=== PATIENT | female | born 1940 | race African-American/Black ===

== ENCOUNTER 2019-04-27 14:05 | Emergency (ER) | payer OTHER ==
--- NOTE | 2019-04-27 14:16 | PDOC ---
Rapid Medical Evaluation Time Seen by Provider: 04/27/19 14:14 Medical Evaluation: Allergies Allergy/AdvReac Type Severity Reaction Status Date / Time No Known Allergies Allergy Verified 03/14/15 18:14 04/27/19 14:16 CC: right lower back pain with sciatica PE: No focal findings Orders: tylenol Patient will proceed to ED for further evaluation. Discharge Disposition - Diagnosis Back pain - Referrals - Patient Instructions - Post Discharge Activity
[2019-04-27] MEDS ORDERED: ACETAMINOPHEN 500 MG TABLET (FP) PO ONE (14:17)
[2019-04-27 14:19] VITALS: BP 143/83; PULSE 62; TEMP 98.5; BMI 37.5
[2019-04-27] MEDS ORDERED: ACETAMINOPHEN 500 MG TABLET (FP) ONE (15:19)
[2019-04-27] MEDS ORDERED: traMADol HCL 50 MG TABLET PO ONE (15:19)
--- NOTE | 2019-04-27 15:20 | PDOC ---
History of Present Illness - General Chief Complaint: Back Pain Stated Complaint: RT. HIP PAIN Time Seen by Provider: 04/27/19 14:14 History Source: Patient, Family Exam Limitations: No Limitations - History of Present Illness Initial Comments: 04/27/19 16:17 Chief complaint: Right hip and ankle pain 78-year-old female with history of hypertension, elevated cholesterol, left breast cancer that has been fully treated and in remission who states that for the past 2 days she has been having increasing right hip and right ankle pain. Patient did have a knee replacement in 2004. Patient usually walks well with her walker but is having a little more difficulty the last 2 days. She saw her regular doctor who prescribed her meloxicam but patient feels it is not helping her and she is been crying in pain. Patient has been able to use the walker but not as well as she usually does. Patient has no incontinence, numbness. Patient does have prior back issues. Patient is ambulatory with a walker. GENERAL/CONSTITUTIONAL: No fever, weakness. dizziness HEAD, EYES, EARS, NOSE AND THROAT: No change in vision. No ear pain or discharge. No sore throat. CARDIOVASCULAR: No chest pain RESPIRATORY: No shortness of breath or cough GASTROINTESTINAL: No pain, nausea, vomiting, diarrhea or constipation GENITOURINARY: No dysuria MUSCULOSKELETAL: No neck or back pain SKIN: No rash NEUROLOGIC: No headache, vertigo, loss of consciousness, or loss of sensation. GENERAL: The patient is awake, alert, and fully oriented, in no acute distress. HEAD: Normal with no signs of trauma. EYES: Pupils equal, round and reactive to light, sclera anicteric, conjunctiva clear. ENT: pharynx: no erythema, no exudate, uvula midline NECK: supple CHEST: clear, nontender, rr ABD: soft, nontender BACK: no tenderness or signs of injury, + scoliosis EXTREMITIES: Right hip tenderness, no deformity, knee with chronic swelling, no signs of acute issue, ankle with mild tenderness, no deformity, no calf swelling , erythema or tenderness. Normal range of motion, no edema. NEUROLOGICAL: Normal speech, cranial nerves II through XII grossly intact, no gross focal abnormalities. SKIN: Warm, Dry Past History - Past Medical History Allergies/Adverse Reactions: Allergies Allergy/AdvReac Type Severity Reaction Status Date / Time No Known Allergies Allergy Verified 04/27/19 14:16 Home Medications: Ambulatory Orders Alendronate Na [Fosamax (Weekly)] 70 mg PO WEEKLY 11/23/13 Amlodipine Besylate [Norvasc -] 10 mg PO DAILY 11/23/13 Aspirin [Leonard Chewable Aspirin] 81 mg PO DAILY 11/23/13 Cholecalciferol (Vitamin D3) [Vitamin D-3] 2,000 units PO DAILY 11/23/13 Clonidine HCl [Catapres] 0.3 mg PO DAILY 11/23/13 Losartan Potassium [Cozaar] 100 mg PO DAILY 11/23/13 Simvastatin [Zocor -] 20 mg PO DAILY 11/23/13 Sulfamethoxazole/Trimethoprim [Bactrim *Ds*] 1 tab PO BID #14 tablet 03/14/15 Hydrocodone/Acetaminophen [Hydrocodone-Acetamin 5-325 mg] 1 each PO QID PRN #20 tablet MDD 4 04/27/19 Anemia: No Asthma: No Cancer: Yes (BREAST LEFT) Cardiac Disorders: Yes CVA: No COPD: No CHF: No Dementia: No Diabetes: Yes GI Disorders: Yes Disorders: Yes (FREQUENCY) HTN: Yes Hypercholesterolemia: Yes Liver Disease: No Seizures: No Thyroid Disease: Yes - Surgical History Abdominal Surgery: No Appendectomy: No Cardiac Surgery: No Cholecystectomy: No Lung Surgery: No Neurologic Surgery: No Orthopedic Surgery: Yes (BILATERAL KNEES) - Immunization History Immunization Up to Date: Yes - Psycho Social/Smoking Cessation Hx Smoking History: Never smoked Have you smoked in the past 12 months: No Hx Alcohol Use: No Drug/Substance Use Hx: No Substance Use Type: None Hx Substance Use Treatment: No *Physical Exam - Vital Signs Last Vital Signs Temp Pulse Resp BP Pulse Ox 98.5 F 62 17 143/83 99 04/27/19 14:16 04/27/19 14:16 04/27/19 14:16 04/27/19 14:16 04/27/19 14:16 Medical Decision Making - Medical Decision Making 04/27/19 16:21 78-year-old female with hypertension, elevated cholesterol, fully treated left breast cancer without any acute issue who is been having difficulty with left hip pain and ankle pain for the last couple of days which was evaluated by her primary care doctor, she was started on meloxicam and has an appointment with the orthopedist on Wednesday. Patient states she is in too much pain. Patient is with her daughter who states that she sometimes crying from the pain. Exam shows no acute concerning issues other than pain in the hip and ankle. Patient is able to ambulate with her walker although daughter states not as well as she usually does. There is no signs of infection, no calf swelling or tenderness. Patient has obvious scoliosis to the back. There is no neurological involvement. Patient will get x-rays of the hip and ankle which she would like to have. We will add tramadol to the meloxicam now and see if that helps her while she is in the ER. X-rays show no acute issue, patient has gotten some relief from the tramadol is awake alert and ambulatory. She would like something a little stronger and she lives with her son and daughter agrees. Will prescribe her hydrocodone. She knows not to take any other Tylenol in addition to what is in the hydrocodone. She will continue the meloxicam and follow-up with Dr. Arias on Wednesday and return sooner if she has having any more complicating issues. Discussed issues, findings, results, applicable medications and treatments and follow-up. All these were understood and all questions were answered Discharge - Discharge Information Problems reviewed: Yes Clinical Impression/Diagnosis: Hip pain, right Ankle pain, right Qualifiers: Chronicity: acute Qualified Code(s): M25.571 - Pain in right ankle and joints of right foot Condition: Stable Disposition: HOME - Admission No - Additional Discharge Information Prescriptions: Hydrocodone/Acetaminophen [Hydrocodone-Acetamin 5-325 mg] 1 each PO QID PRN #20 tablet MDD 4 PRN Reason: Pain Prescription Drug Monitoring Program (I-STOP) results: I-STOP reviewed and no issues identified - Follow up/Referral Referrals: Chandrakant Hernandez MD [Primary Care Provider] - Keith Douglass MD [Staff Physician] - - Patient Discharge Instructions Additional Instructions: You can continue taking the meloxicam that your doctor gave you. Do not take any Tylenol, I am prescribing you a medication that has Tylenol in it and taking too much Tylenol can harm your liver You can take the hydrocodone tablet every 6 hours. Follow-up with Dr. Douglass on Wednesday as scheduled Return to the ER if you become much sicker or pain is unbearable - Post Discharge Activity
[2019-04-27] MEDS ORDERED: traMADol HCL 50 MG TABLET ONE (15:21)
== END 2019-04-27 16:35 | disposition home or self-care (01) ==
LOC: JERFT 14:05
DX: M25.551 Pain in right hip (principal); M25.571 Pain in right ankle and joints of right foot; M41.9 Scoliosis, unspecified; I10 Essential (primary) hypertension; E78.00 Pure hypercholesterolemia, unspecified; E11.9 Type 2 diabetes mellitus without complications; R35.0 Frequency of micturition; Z85.3 Personal history of malignant neoplasm of breast; Z96.659 Presence of unspecified artificial knee joint; Z99.89 Dependence on other enabling machines and devices
CPT/HCPCS: 73502-TC-RT-FY; 73610-TC-RT-FY; 73630-TC-RT-FY; 99281-25

== ENCOUNTER 2021-01-24 08:40 | Inpatient (IN) | payer OTHER ==
[2021-01-24 08:48] VITALS: BMI 36.8
[2021-01-24] MEDS ORDERED: ACETAMINOPHEN 325 MG TABLET (FP) PO ONE (09:10)
[2021-01-24] MEDS ORDERED: SODIUM CHLORIDE 2,926 ML IV ONE (09:19)
[2021-01-24] MEDS ORDERED: ACETAMINOPHEN 1000 MG/100 ML VIAL (NON FORMULARY) IVPB ONE (09:20)
[2021-01-24] MEDS ORDERED: ACETAMINOPHEN INJECTION 100 ML IVPB ONE (09:31)
[2021-01-24] MEDS ORDERED: LACTATED RINGERS SOLUTION 1000 ML INFUS.BAG IV ONE (09:47)
[2021-01-24 10:11] LABS: EPI CELLS 19 /uL (0-25.1); HYALINE CASTS 1 /uL (0-3.1); PH,URINE 7.5 (5.0-8.0); URINE APPEARANCE CLEAR; URINE BACTERIA 117 /uL (0-1359); URINE BILIRUBIN NEGATIVE (NEGATIVE); URINE COLOR YELLOW; URINE GLUCOSE (UA) NEGATIVE (NEGATIVE); URINE KETONE 3+ (NEGATIVE); URINE LEUK ESTERASE TRACE (NEGATIVE); URINE NITRITE NEGATIVE (NEGATIVE); URINE PROTEIN 1+ (NEGATIVE); URINE RBC 22 /uL (0-23.9); URINE UROBILINOGEN 0.2 mg/dL (0.2-1.0); URINE WBC 18 /uL (0-25.8)
[2021-01-24] MEDS ORDERED: SODIUM CHLORIDE 0.9% 500 ML INFUS.BAG IV ONE (10:14)
[2021-01-24 10:34] LABS: BASO % 0.4 % (0-2.0); HEMOGLOBIN 13.3 GM/dL (10.7-15.3); MCH 29.3 pg (25.7-33.7); MCHC 34.2 g/dl (32.0-36.0); MEAN CELL VOLUME 85.5 fl (80-96); MEAN PLT VOLUME 9.4 fl (7.5-11.1); MONO % 10.1 % (3.8-10.2); NEUT % 77.5 % (42.8-82.8); PLATELET COUNT 222 10^3/uL (134-434); RBC 4.55 M/mm3 (3.60-5.2); RDW 14.1 % (11.6-15.6); WHITE BLOOD COUNT 9.9 K/mm3 (4.0-10.0)
[2021-01-24 10:51] LABS: CHLORIDE 101 mmol/L (98-107); SODIUM 137 mmol/L (136-145)
[2021-01-24 10:53] LABS: ANION GAP 9 MMOL/L (8-16); BLOOD UREA NITROGEN 9.8 mg/dL (7-18); CALCIUM 9.2 mg/dL (8.5-10.1); CO2 27 mmol/L (21-32); GLUCOSE,RANDOM 124 mg/dL (74-106)
[2021-01-24 10:54] LABS: ALBUMIN 3.4 g/dl (3.4-5.0)
[2021-01-24 10:56] LABS: CREATININE 0.6 mg/dL (0.55-1.3); SGOT/AST 21 U/L (15-37); SGPT/ALT 17 U/L (13-61)
[2021-01-24 10:59] LABS: ALK PHOS 81 U/L (45-117); BILIRUBIN,TOTAL 0.8 mg/dL (0.2-1)
[2021-01-24 11:32] LABS: INR 1.07 (0.83-1.09); PROTHROMBIN TIME (PATIENT) 12.9 SEC (9.7-13.0)
[2021-01-24 11:35] LABS: ACTIVATED PTT 27.3 SECONDS (25.2-36.5)
[2021-01-24] MEDS ORDERED: CEFTRIAXONE 1,000 MG in DEXTROSE 5%-WATER - 50 ML IVPB ONE (12:40)
[2021-01-24] MEDS ORDERED: AZITHROMYCIN IVPB 500 MG in DEXTROSE 5%-WATER - 250 ML IVPB ONE (12:40)
[2021-01-24] MEDS ORDERED: CEFTRIAXONE 1 GM/50 ML BAG ONE (12:43)
[2021-01-24] MEDS ORDERED: AZITHROMYCIN IVPB 500 MG/250 ML BAG IVPB ONE (12:43)
[2021-01-24] MEDS ORDERED: POTASSIUM CHLORIDE TABS 20 MEQ TABLET.ER (FP) PO ONE ×3 (13:02→17:00)
[2021-01-24] MEDS ORDERED: POTASSIUM CHLORIDE ORAL LIQUID 20 MEQ/15 ML PO ONE (13:46)
[2021-01-24] MEDS ORDERED: POTASSIUM CHLORIDE ORAL LIQUID 20 MEQ/15 ML ONE (13:47)
[2021-01-24] MEDS ORDERED: oxyCODONE HCL 5 MG TABLET ONE (13:56)
[2021-01-24] MEDS: oxyCODONE HCL 5 MG TABLET PO ONE ×2 (14:02→14:26)
[2021-01-24] MEDS ORDERED: DOCUSATE SODIUM 100 MG CAPSULE (FP) PO PRN (14:42)
[2021-01-24] MEDS ORDERED: ONDANSETRON 4 MG/2 ML VIAL IVPUSH PRN (14:45)
[2021-01-24] MEDS ORDERED: AZITHROMYCIN IVPB 250 MG in DEXTROSE 5%-WATER - 250 ML IVPB ONE (15:06)
[2021-01-24] MEDS ORDERED: METOCLOPRAMIDE HCL INJECTION 10 MG/2 ML VIAL IVPUSH PRN (15:09)
[2021-01-24] MEDS ORDERED: HYDROCHLOROTHIAZIDE 12.5 MG CAPSULE (FP) PO SCH (15:15)
[2021-01-24] MEDS ORDERED: amLODIPine BESYLATE 5 MG TABLET (FP) ONE (16:02)
[2021-01-24] MEDS ORDERED: HYDROCHLOROTHIAZIDE 25 MG TABLET (FP) ONE (16:02)
[2021-01-24] MEDS ORDERED: ASPIRIN 81 MG CHEWABLE TABLETS ONE (16:02)
[2021-01-24] MEDS ORDERED: LOSARTAN POTASSIUM 50 MG TABLET ONE (16:03)
[2021-01-24] MEDS ORDERED: PARoxetine HCL 10 MG TABLET ONE (16:03)
[2021-01-24] MEDS: LOSARTAN POTASSIUM 50 MG TABLET PO SCH (16:21)
[2021-01-24] MEDS: ASPIRIN 81 MG CHEWABLE TABLETS PO SCH (16:21)
[2021-01-24] MEDS: amLODIPine BESYLATE 10 MG TABLET (FP) PO SCH (16:22)
[2021-01-24] MEDS: PARoxetine HCL 10 MG TABLET PO SCH (16:22)
[2021-01-24] MEDS ORDERED: ACETAMINOPHEN 325 MG TABLET (FP) ONE (17:10)
[2021-01-24] MEDS: SOLIFENACIN SUCCINATE 5 MG TAB PO SCH (17:42)
[2021-01-24] MEDS ORDERED: LIDOCAINE 5% TOPICAL PATCH ONE (17:54)
[2021-01-24] MEDS: LIDOCAINE 5% TOPICAL PATCH TP SCH (18:00)
[2021-01-24] MEDS: ACETAMINOPHEN 325 MG TABLET (FP) PO PRN (18:00)
[2021-01-24] MEDS ORDERED: ATORVASTATIN CA 10 MG TABLET (FP) ONE (21:57)
[2021-01-24] MEDS: ATORVASTATIN CA 10 MG TABLET (FP) PO SCH (22:00)
[2021-01-24] MEDS: LIDOCAINE PATCH REMOVAL MC SCH (22:08)
[2021-01-25] MEDS ORDERED: traZODone HCL 50 MG TABLET (FP) PO ONE (01:20)
[2021-01-25] MEDS ORDERED: PIPERACILLIN/TAZOB 3.375 GM 3.375 GM in DEXTROSE 5%-WATER - 50 ML IVPB SCH (02:00)
[2021-01-25] MEDS: ACETAMINOPHEN 325 MG TABLET (FP) PO PRN ×2 (03:23→17:40)
[2021-01-25] MEDS ORDERED: DEXTROSE 5%-WATER - 50 ML IVPB ONE (08:48)
[2021-01-25] MEDS ORDERED: cefTRIAXone SODIUM 1 GM VIAL ONE (08:48)
[2021-01-25] MEDS ORDERED: PT OWN MED DRAWER 7, Y5N ONE ×3 (09:20→11:03)
[2021-01-25 09:25] LABS: BLOOD UREA NITROGEN 7.9 mg/dL (7-18); CALCIUM 8.3 mg/dL (8.5-10.1); MAGNESIUM 1.7 mg/dL (1.8-2.4)
[2021-01-25 09:28] LABS: CREATININE 0.5 mg/dL (0.55-1.3)
[2021-01-25 09:29] LABS: PHOSPHOROUS 2.7 mg/dL (2.5-4.9)
[2021-01-25 09:30] LABS: BILIRUBIN,TOTAL 0.5 mg/dL (0.2-1); TOT PROT 6.5 g/dl (6.4-8.2)
[2021-01-25 09:36] LABS: ALBUMIN 2.7 g/dl (3.4-5.0)
[2021-01-25 09:45] LABS: HEMATOCRIT 34.8 % (32.4-45.2); MCH 29.1 pg (25.7-33.7); MCHC 34.5 g/dl (32.0-36.0); MEAN CELL VOLUME 84.3 fl (80-96); MEAN PLT VOLUME 9.4 fl (7.5-11.1); PLATELET COUNT 177 10^3/uL (134-434); RBC 4.12 M/mm3 (3.60-5.2); RDW 14.2 % (11.6-15.6); WHITE BLOOD COUNT 8.7 K/mm3 (4.0-10.0)
[2021-01-25] MEDS ORDERED: POTASSIUM CHLORIDE TABS 20 MEQ TABLET.ER (FP) PO ONE (09:47)
[2021-01-25] MEDS: LIDOCAINE 5% TOPICAL PATCH TP SCH (09:52)
[2021-01-25] MEDS: LOSARTAN POTASSIUM 50 MG TABLET PO SCH (09:57)
[2021-01-25] MEDS: amLODIPine BESYLATE 10 MG TABLET (FP) PO SCH (09:57)
[2021-01-25] MEDS: PARoxetine HCL 10 MG TABLET PO SCH (09:57)
[2021-01-25] MEDS: ENOXAPARIN NA (PORCINE) 40 MG/0.4 ML DISP.SYRIN SQ SCH (09:57)
[2021-01-25] MEDS: CEFTRIAXONE 1 GM in DEXTROSE 5%-WATER - 50 ML IVPB SCH (09:57)
[2021-01-25] MEDS: ASPIRIN 81 MG CHEWABLE TABLETS PO SCH (09:57)
[2021-01-25] MEDS ORDERED: CEFTRIAXONE 1 GM in DEXTROSE 5%-WATER - 50 ML IVPB SCH (10:00)
[2021-01-25] MEDS ORDERED: KCL 10 MEQ IVPB 10 MEQ/100 ML INFUS.BAG IVPB SCH (10:00)
[2021-01-25] MEDS ORDERED: AZITHROMYCIN IVPB 250 MG in DEXTROSE 5%-WATER - 250 ML IVPB SCH (10:00)
[2021-01-25] MEDS: AZITHROMYCIN IVPB 250 MG in DEXTROSE 5%-WATER - 250 ML IVPB SCH (10:46)
[2021-01-25] MEDS: FUROSEMIDE 20 MG TABLET (FP) PO SCH (10:52)
[2021-01-25] MEDS: SOLIFENACIN SUCCINATE 5 MG TAB PO SCH (11:17)
[2021-01-25 21:06] LABS: SARS-CoV-2 NAA Not Detected (Not Detected)
[2021-01-25] MEDS: ATORVASTATIN CA 10 MG TABLET (FP) PO SCH (21:45)
[2021-01-25] MEDS: LIDOCAINE PATCH REMOVAL MC SCH (23:05)
[2021-01-26] MEDS: diphenhydrAMINE HCL 25 MG CAPSULE (FP) PO PRN ×2 (00:03→22:14)
[2021-01-26] MEDS: ACETAMINOPHEN 325 MG TABLET (FP) PO PRN ×2 (00:03→18:15)
[2021-01-26] MEDS ORDERED: POTASSIUM CHLORIDE TABS 20 MEQ TABLET.ER (FP) PO ONE (04:49)
[2021-01-26] MEDS ORDERED: MAGNESIUM SULF 50% (8.12 MEQ/2 ML-1 GM VIAL) IVPB ONE (05:14)
[2021-01-26] MEDS: ACETAMINOPHEN 1000 MG/100 ML VIAL (NON FORMULARY) IVPB PRN ×2 (05:57→09:52)
[2021-01-26 08:54] LABS: BASO % 0.7 % (0-2.0); EOS % 2.1 % (0-4.5); HEMATOCRIT 34.6 % (32.4-45.2); HEMOGLOBIN 11.8 GM/dL (10.7-15.3); LYMPH % 28.6 % (8-40); MCH 28.8 pg (25.7-33.7); MCHC 34.1 g/dl (32.0-36.0); MEAN CELL VOLUME 84.4 fl (80-96); MEAN PLT VOLUME 8.9 fl (7.5-11.1); MONO % 22.9 % (3.8-10.2); NEUT % 45.7 % (42.8-82.8); PLATELET COUNT 194 10^3/uL (134-434); RDW 14.3 % (11.6-15.6); WHITE BLOOD COUNT 5.9 K/mm3 (4.0-10.0)
[2021-01-26 09:34] LABS: ALBUMIN 2.5 g/dl (3.4-5.0); BILIRUBIN,TOTAL 0.4 mg/dL (0.2-1); CALCIUM 8.5 mg/dL (8.5-10.1); CREATININE 0.5 mg/dL (0.55-1.3); MAGNESIUM 2.6 mg/dL (1.8-2.4); PHOSPHOROUS 2.2 mg/dL (2.5-4.9); TOT PROT 6.5 g/dl (6.4-8.2)
[2021-01-26] MEDS ORDERED: cefTRIAXone SODIUM 1 GM VIAL ONE (09:45)
[2021-01-26] MEDS ORDERED: DEXTROSE 5%-WATER - 50 ML IVPB ONE (09:45)
[2021-01-26] MEDS: ENOXAPARIN NA (PORCINE) 40 MG/0.4 ML DISP.SYRIN SQ SCH (09:49)
[2021-01-26] MEDS: LIDOCAINE 5% TOPICAL PATCH TP SCH (09:49)
[2021-01-26] MEDS: LOSARTAN POTASSIUM 50 MG TABLET PO SCH (09:50)
[2021-01-26] MEDS: FUROSEMIDE 20 MG TABLET (FP) PO SCH (09:50)
[2021-01-26] MEDS: CEFTRIAXONE 1 GM in DEXTROSE 5%-WATER - 50 ML IVPB SCH (09:50)
[2021-01-26] MEDS: ASPIRIN 81 MG CHEWABLE TABLETS PO SCH (09:50)
[2021-01-26] MEDS: amLODIPine BESYLATE 10 MG TABLET (FP) PO SCH (09:50)
[2021-01-26] MEDS: PARoxetine HCL 10 MG TABLET PO SCH (09:51)
[2021-01-26] MEDS: SOLIFENACIN SUCCINATE 5 MG TAB PO SCH (09:51)
[2021-01-26] MEDS ORDERED: NAPH,MB-DB/K PH,MBDB POWDER PACKET PO ONE (10:05)
[2021-01-26] MEDS: AZITHROMYCIN IVPB 250 MG in DEXTROSE 5%-WATER - 250 ML IVPB SCH (11:12)
[2021-01-26] MEDS ORDERED: traMADol HCL 50 MG TABLET PO PRN (11:18)
[2021-01-26 11:34] LABS: ANISOCYTOSIS 0; HELMET CELLS 0; HOWELL-JOLLY BODIES 0; MACROCYTOSIS 0; OVALOCYTE 0; PLATELET ESTIMATE NORMAL; ROULEAU 0; SICKELED CELLS 0; TARGET CELLS 0; TEAR DROP CELLS 0; TOXIC GRANULATION 0
[2021-01-26] MEDS: LIDOCAINE PATCH REMOVAL MC SCH (21:05)
[2021-01-26] MEDS: ATORVASTATIN CA 10 MG TABLET (FP) PO SCH (21:05)
[2021-01-26] MEDS: traMADol HCL 50 MG TABLET PO PRN (22:14)
[2021-01-27] MEDS: ACETAMINOPHEN 325 MG TABLET (FP) PO PRN ×3 (03:03→22:51)
[2021-01-27 08:23] LABS: BLOOD UREA NITROGEN 9.3 mg/dL (7-18); CALCIUM 8.6 mg/dL (8.5-10.1)
[2021-01-27 08:26] LABS: CREATININE 0.5 mg/dL (0.55-1.3); PHOSPHOROUS 2.7 mg/dL (2.5-4.9)
[2021-01-27] MEDS: traMADol HCL 50 MG TABLET PO PRN ×2 (08:32→17:48)
[2021-01-27] MEDS ORDERED: cefTRIAXone SODIUM 1 GM VIAL ONE (09:47)
[2021-01-27] MEDS ORDERED: DEXTROSE 5%-WATER - 50 ML IVPB ONE (09:47)
[2021-01-27] MEDS: FUROSEMIDE 20 MG TABLET (FP) PO SCH (09:49)
[2021-01-27] MEDS: amLODIPine BESYLATE 10 MG TABLET (FP) PO SCH (09:49)
[2021-01-27] MEDS: PARoxetine HCL 10 MG TABLET PO SCH (09:49)
[2021-01-27] MEDS: ASPIRIN 81 MG CHEWABLE TABLETS PO SCH (09:49)
[2021-01-27] MEDS: CEFTRIAXONE 1 GM in DEXTROSE 5%-WATER - 50 ML IVPB SCH (09:49)
[2021-01-27] MEDS: ENOXAPARIN NA (PORCINE) 40 MG/0.4 ML DISP.SYRIN SQ SCH (09:49)
[2021-01-27] MEDS: LOSARTAN POTASSIUM 50 MG TABLET PO SCH (09:49)
[2021-01-27] MEDS: GABAPENTIN 100 MG CAPSULE PO SCH ×2 (09:49→21:40)
[2021-01-27] MEDS: LIDOCAINE 5% TOPICAL PATCH TP SCH (09:49)
[2021-01-27] MEDS: SOLIFENACIN SUCCINATE 5 MG TAB PO SCH (09:50)
[2021-01-27] MEDS: AZITHROMYCIN IVPB 250 MG in DEXTROSE 5%-WATER - 250 ML IVPB SCH (10:13)
[2021-01-27] MEDS ORDERED: CLONIDINE TP SCH (12:00)
[2021-01-27] MEDS: ATORVASTATIN CA 10 MG TABLET (FP) PO SCH (21:40)
[2021-01-27] MEDS: LIDOCAINE PATCH REMOVAL MC SCH (21:40)
[2021-01-27] MEDS: diphenhydrAMINE HCL 25 MG CAPSULE (FP) PO PRN (22:51)
[2021-01-28 07:34] LABS: BASO % 0.7 % (0-2.0); EOS % 5.2 % (0-4.5); HEMATOCRIT 36.9 % (32.4-45.2); HEMOGLOBIN 12.6 GM/dL (10.7-15.3); MCH 29.1 pg (25.7-33.7); MCHC 34.1 g/dl (32.0-36.0); MEAN CELL VOLUME 85.5 fl (80-96); MEAN PLT VOLUME 9.1 fl (7.5-11.1); MONO % 15.2 % (3.8-10.2); NEUT % 36.9 % (42.8-82.8); PLATELET COUNT 260 10^3/uL (134-434); RBC 4.32 M/mm3 (3.60-5.2); WHITE BLOOD COUNT 4.4 K/mm3 (4.0-10.0)
[2021-01-28 07:59] LABS: BLOOD UREA NITROGEN 10.2 mg/dL (7-18)
[2021-01-28 08:00] LABS: ALBUMIN 2.7 g/dl (3.4-5.0); CALCIUM 9.1 mg/dL (8.5-10.1)
[2021-01-28 08:01] LABS: MAGNESIUM 2.1 mg/dL (1.8-2.4)
[2021-01-28 08:03] LABS: BILIRUBIN,TOTAL 0.3 mg/dL (0.2-1); CREATININE 0.5 mg/dL (0.55-1.3); PHOSPHOROUS 3.4 mg/dL (2.5-4.9)
[2021-01-28 08:04] LABS: TOT PROT 6.8 g/dl (6.4-8.2)
[2021-01-28] MEDS ORDERED: cefTRIAXone SODIUM 1 GM VIAL ONE (09:55)
[2021-01-28] MEDS ORDERED: PT OWN MED DRAWER 7, Y5N ONE (09:55)
[2021-01-28] MEDS ORDERED: DEXTROSE 5%-WATER - 50 ML IVPB ONE (09:56)
[2021-01-28] MEDS: LIDOCAINE 5% TOPICAL PATCH TP SCH (10:04)
[2021-01-28] MEDS: CEFTRIAXONE 1 GM in DEXTROSE 5%-WATER - 50 ML IVPB SCH (10:05)
[2021-01-28] MEDS: traMADol HCL 50 MG TABLET PO PRN ×2 (10:06→21:25)
[2021-01-28] MEDS: ENOXAPARIN NA (PORCINE) 40 MG/0.4 ML DISP.SYRIN SQ SCH (10:06)
[2021-01-28] MEDS: PARoxetine HCL 10 MG TABLET PO SCH (10:07)
[2021-01-28] MEDS: SOLIFENACIN SUCCINATE 5 MG TAB PO SCH (10:07)
[2021-01-28] MEDS: LOSARTAN POTASSIUM 50 MG TABLET PO SCH (10:07)
[2021-01-28] MEDS: ASPIRIN 81 MG CHEWABLE TABLETS PO SCH (10:08)
[2021-01-28] MEDS: FUROSEMIDE 20 MG TABLET (FP) PO SCH (10:08)
[2021-01-28] MEDS: amLODIPine BESYLATE 10 MG TABLET (FP) PO SCH (10:08)
[2021-01-28] MEDS: GABAPENTIN 100 MG CAPSULE PO SCH ×4 (10:14→21:23)
[2021-01-28] MEDS: AZITHROMYCIN IVPB 250 MG in DEXTROSE 5%-WATER - 250 ML IVPB SCH (11:53)
[2021-01-28] MEDS: ATORVASTATIN CA 10 MG TABLET (FP) PO SCH (21:23)
[2021-01-28] MEDS: LIDOCAINE PATCH REMOVAL MC SCH (21:27)
[2021-01-29] MEDS: GABAPENTIN 100 MG CAPSULE PO SCH ×3 (06:09→21:54)
[2021-01-29 08:25] LABS: HEMATOCRIT 36.9 % (32.4-45.2); HEMOGLOBIN 12.7 GM/dL (10.7-15.3); MCH 29.1 pg (25.7-33.7); MCHC 34.3 g/dl (32.0-36.0); MEAN CELL VOLUME 84.9 fl (80-96); MEAN PLT VOLUME 8.7 fl (7.5-11.1); PLATELET COUNT 244 10^3/uL (134-434); RBC 4.35 M/mm3 (3.60-5.2); RDW 14.1 % (11.6-15.6); WHITE BLOOD COUNT 5.4 K/mm3 (4.0-10.0)
[2021-01-29 08:39] LABS: BLOOD UREA NITROGEN 16.4 mg/dL (7-18); CALCIUM 9.1 mg/dL (8.5-10.1)
[2021-01-29 08:40] LABS: MAGNESIUM 2.1 mg/dL (1.8-2.4)
[2021-01-29 08:41] LABS: CREATININE 0.7 mg/dL (0.55-1.3)
[2021-01-29 08:42] LABS: PHOSPHOROUS 3.6 mg/dL (2.5-4.9)
[2021-01-29] MEDS ORDERED: cefTRIAXone SODIUM 1 GM VIAL ONE (09:07)
[2021-01-29] MEDS ORDERED: DEXTROSE 5%-WATER - 50 ML IVPB ONE (09:07)
[2021-01-29] MEDS: CEFTRIAXONE 1 GM in DEXTROSE 5%-WATER - 50 ML IVPB SCH (09:11)
[2021-01-29] MEDS ORDERED: PT OWN MED DRAWER 7, Y5N ONE (09:55)
[2021-01-29] MEDS: LIDOCAINE 5% TOPICAL PATCH TP SCH (10:06)
[2021-01-29] MEDS: ENOXAPARIN NA (PORCINE) 40 MG/0.4 ML DISP.SYRIN SQ SCH (10:07)
[2021-01-29] MEDS: ASPIRIN 81 MG CHEWABLE TABLETS PO SCH (10:09)
[2021-01-29] MEDS: SOLIFENACIN SUCCINATE 5 MG TAB PO SCH (10:09)
[2021-01-29] MEDS: FUROSEMIDE 20 MG TABLET (FP) PO SCH (10:09)
[2021-01-29] MEDS: amLODIPine BESYLATE 10 MG TABLET (FP) PO SCH (10:09)
[2021-01-29] MEDS: LOSARTAN POTASSIUM 50 MG TABLET PO SCH (10:10)
[2021-01-29] MEDS: PARoxetine HCL 10 MG TABLET PO SCH (10:10)
[2021-01-29] MEDS: traMADol HCL 50 MG TABLET PO PRN (10:10)
[2021-01-29] MEDS: AZITHROMYCIN IVPB 250 MG in DEXTROSE 5%-WATER - 250 ML IVPB SCH (10:11)
[2021-01-29] MEDS: ACETAMINOPHEN 325 MG TABLET (FP) PO PRN (21:53)
[2021-01-29] MEDS: ATORVASTATIN CA 10 MG TABLET (FP) PO SCH (21:54)
[2021-01-29] MEDS: LIDOCAINE PATCH REMOVAL MC SCH (21:54)
[2021-01-30] MEDS: diphenhydrAMINE HCL 25 MG CAPSULE (FP) PO PRN (02:48)
[2021-01-30] MEDS: GABAPENTIN 100 MG CAPSULE PO SCH ×2 (06:17→13:28)
[2021-01-30 07:54] LABS: HEMATOCRIT 35.4 % (32.4-45.2); HEMOGLOBIN 12.2 GM/dL (10.7-15.3); MCH 29.3 pg (25.7-33.7); MCHC 34.4 g/dl (32.0-36.0); MEAN CELL VOLUME 85.1 fl (80-96); MEAN PLT VOLUME 8.9 fl (7.5-11.1); PLATELET COUNT 270 10^3/uL (134-434); RBC 4.16 M/mm3 (3.60-5.2); RDW 14.6 % (11.6-15.6); WHITE BLOOD COUNT 6.1 K/mm3 (4.0-10.0)
[2021-01-30 08:04] LABS: BLOOD UREA NITROGEN 14.6 mg/dL (7-18); MAGNESIUM 2.1 mg/dL (1.8-2.4)
[2021-01-30 08:07] LABS: CREATININE 0.6 mg/dL (0.55-1.3); PHOSPHOROUS 3.7 mg/dL (2.5-4.9)
[2021-01-30] MEDS ORDERED: DEXTROSE 5%-WATER - 50 ML IVPB ONE (09:05)
[2021-01-30] MEDS ORDERED: cefTRIAXone SODIUM 1 GM VIAL ONE (09:05)
[2021-01-30] MEDS: ENOXAPARIN NA (PORCINE) 40 MG/0.4 ML DISP.SYRIN SQ SCH (09:12)
[2021-01-30] MEDS: CEFTRIAXONE 1 GM in DEXTROSE 5%-WATER - 50 ML IVPB SCH (09:12)
[2021-01-30] MEDS: LOSARTAN POTASSIUM 50 MG TABLET PO SCH (09:12)
[2021-01-30] MEDS: ASPIRIN 81 MG CHEWABLE TABLETS PO SCH (09:13)
[2021-01-30] MEDS: PARoxetine HCL 10 MG TABLET PO SCH (09:13)
[2021-01-30] MEDS: amLODIPine BESYLATE 10 MG TABLET (FP) PO SCH (09:13)
[2021-01-30] MEDS: FUROSEMIDE 20 MG TABLET (FP) PO SCH (09:13)
[2021-01-30] MEDS: LIDOCAINE 5% TOPICAL PATCH TP SCH (09:13)
[2021-01-30] MEDS: SOLIFENACIN SUCCINATE 5 MG TAB PO SCH (09:14)
[2021-01-30] MEDS: ACETAMINOPHEN 325 MG TABLET (FP) PO PRN (09:15)
[2021-01-30] MEDS: AZITHROMYCIN IVPB 250 MG in DEXTROSE 5%-WATER - 250 ML IVPB SCH (09:39)
[2021-01-30 14:22] VITALS: BP 134/60; PULSE 50; TEMP 98.4
[2021-02-03] MEDS ORDERED: cloNIDine-TTS 0.3 MG /24 HRS PATCH.TDWK TD SCH (10:00)
== END 2021-01-30 14:51 | DRG 871 ==
LOC: JER 08:40 → JERBED 12:51 → J7W 23:14
PROVIDERS: ATTEND Internal Medicine
DX: A41.9 Sepsis, unspecified organism (principal); J18.9 Pneumonia, unspecified organism; I10 Essential (primary) hypertension; E78.5 Hyperlipidemia, unspecified; E05.90 Thyrotoxicosis, unspecified without thyrotoxic crisis or storm; E27.9 Disorder of adrenal gland, unspecified; F41.9 Anxiety disorder, unspecified; Z85.3 Personal history of malignant neoplasm of breast; E87.6 Hypokalemia; M06.9 Rheumatoid arthritis, unspecified; G62.9 Polyneuropathy, unspecified
CPT/HCPCS: 36415; 71045-TC-FY; 72131-TC; 73562-TC-LT-FY; 73562-TC-RT-FY; 74177-TC; 80048; 80053; 81003; 83605; 83735; 84100; 84484; 85025; 85027; 85610; 85730; 87040; 87086; 87804; 87807; 87899; 93005; 93010; 97116-GP; 99285-25; C9803; J0131; Q9967; U0003; U0005

== ENCOUNTER 2021-04-05 11:41 | Emergency (ER) | payer OTHER ==
[2021-04-05 12:18] VITALS: BP 177/84; PULSE 86; TEMP 98; BMI 36.8
[2021-04-05] MEDS ORDERED: KETOROLAC TROMETHAMINE 30 MG/1 ML VIAL IM ONE (12:28)
[2021-04-05] MEDS ORDERED: KETOROLAC TROMETHAMINE 30 MG/1 ML VIAL ONE (12:33)
== END 2021-04-05 13:40 | disposition home or self-care (01) ==
LOC: JERFT 11:41
PROC: 3E0233Z Introduction of Anti-inflammatory into Muscle, Percutaneous Approach (ICD-10-PCS; principal; 2021-04-05)
DX: M54.50 Low back pain, unspecified (principal)
CPT/HCPCS: 99284-25

== ENCOUNTER 2021-04-19 18:46 | Emergency (ER) | payer OTHER ==
[2021-04-19 18:57] VITALS: BP 155/82; PULSE 62; TEMP 98.3; BMI 36.8
[2021-04-19] MEDS ORDERED: LIDOCAINE 5% TOPICAL PATCH TP ONE (19:39)
[2021-04-19] MEDS ORDERED: KETOROLAC TROMETHAMINE 30 MG/1 ML VIAL IM ONE (19:39)
[2021-04-19] MEDS ORDERED: LIDOCAINE 5% TOPICAL PATCH ONE (19:42)
[2021-04-19] MEDS ORDERED: KETOROLAC TROMETHAMINE 30 MG/1 ML VIAL ONE (19:42)
[2021-04-19] MEDS ORDERED: LIDOCAINE PATCH REMOVAL MC SCH (22:00)
== END 2021-04-19 20:33 | disposition home or self-care (01) ==
LOC: JER 18:46
PROC: 3E0233Z Introduction of Anti-inflammatory into Muscle, Percutaneous Approach (ICD-10-PCS; principal; 2021-04-19)
DX: M54.50 Low back pain, unspecified (principal)
CPT/HCPCS: 99284-25

== ENCOUNTER 2023-02-01 11:45 | Emergency (ER) | payer OTHER ==
[2023-02-01 12:29] VITALS: BP 138/70; PULSE 59; RESP 18; TEMP 98; BMI 40.3
[2023-02-01] MEDS ORDERED: LIDOCAINE 5% TOPICAL PATCH TP ONE (13:53)
[2023-02-01] MEDS ORDERED: LIDOCAINE 5% TOPICAL PATCH ONE (13:59)
[2023-02-01] MEDS ORDERED: LIDOCAINE PATCH REMOVAL MC ONE (22:00)
== END 2023-02-01 15:34 | disposition home or self-care (01) ==
LOC: JERFT 11:45
DX: M54.50 Low back pain, unspecified (principal)
CPT/HCPCS: 72131-TC; 72192-TC; 99284-25